=== PATIENT | male | born 1940 | race Caucasian/White ===

== ENCOUNTER 2018-08-12 09:08 | Emergency (ER) | payer MEDICARE, SELFPAY ==
[2018-08-12] VITALS (27 sets, daily range): BP systolic 110–141; BP diastolic 43–73; PULSE 53–74; RESP 11–31; TEMP 36.8–36.9; O2SAT 90–100
[2018-08-12] MEDS: Ondansetron 4 MG/2 ML VIAL IVP (09:36)
[2018-08-12] MEDS: Normal Saline 1,000 ML 1000 ML IV (09:36)
[2018-08-12 09:37] LABS: Absolute Basophil Count 0.02 k/cumm (0.0-0.2); Absolute Eosinophil Count 0.08 k/cumm (0.0-0.7); Absolute Lymphocyte Count 2.06 k/cumm (1.2-3.4); Absolute Monocyte Count 0.63 k/cumm (0.11-0.7); Absolute Neutrophil Count 3.69 k/cumm (1.2-6.7); Basophils % 0.3; Eosinophils % 1.2; HCT 46.3 % (40.0-50.0); HGB 15.2 g/dL (13.5-17.5); Lymphocytes % 31.8; Mean Corp. HGB Concentration 32.8 g/dL (32.0-36.0); Mean Corpuscular Hemoglobin 30.6 pg (27.0-33.0); Mean Corpuscular Volume 93.3 fL (80-95); Mean Platelet Volume 9.1 fL (8.0-11.0); Monocytes % 9.7; Platelet Count 327 x1000/uL (130-400); RBC 4.96 m/cumm (4.50-6.00); RBC Distribution Width 13.1 % (11.8-14.1); White Blood Cell Count 6.48 k/cumm (4.4-10.8)
[2018-08-12] MEDS: Sucralfate 1 GM TAB PO (09:38)
[2018-08-12] MEDS: Pantoprazole 40 MG VIAL IVP (09:38)
[2018-08-12 09:48] LABS: Lipase 81 U/L (73-393)
[2018-08-12 09:57] LABS: ALT 36 U/L (12-78); AST 48 U/L (15-37); Albumin 3.5 g/dL (3.4-5.0); Alkaline Phosphatase 103 U/L (46-116); Anion Gap 11.8 mmol/L (3-11); BUN 20 mg/dL (7-18); Bilirubin, Total 1.2 mg/dL (0.2-1.0); CO2 25.2 mmol/L (21.0-32.0); CREATININE 0.93 mg/dL (0.70-1.30); Calcium 9.5 mg/dL (8.5-10.1); Chloride 106 mmol/L (98-107); Glucose 88 mg/dL (70-100); Potassium 4.1 mmol/L (3.5-5.1); Sodium 143 mmol/L (136-145)
--- NOTE | 2018-08-12 10:23 | ED.GENADUL_ITS ---
Discharge Plan Disposition Patient Disposition: HOME Condition: Good Discharge Details Chief Complaint: Abd Prob Clinical Impression: Gastric ulcer, Vomiting Primary Care Provider: Harjinder Bañuelos ED Provider: Edwin Hoover Home Meds and New Rx's Prescriptions: New sucralfate [Carafate] 100 mg/mL suspension 2 gm W[place] BID Qty: 420 RF: 0 pantoprazole [Protonix] 40 mg tablet,delayed release (DR/EC) 40 mg PO DAILY Qty: 30 RF: 0 ranitidine HCl 150 mg tablet 150 mg PO DAILY Qty: 30 RF: 0 ondansetron 4 mg tablet,disintegrating 4 mg PO TID PRN (Reason: nausea and vomiting) 5 Days RF: 0 No Action aspirin [Aspirin Low Dose] 81 MG tablet,delayed release (DR/EC) 81 mg PO DAILY RF: 0 simvastatin 40 MG tablet 40 mg PO DAILY RF: 0 apixaban [Eliquis] 5 MG tablet 5 mg PO BID RF: 0 Metoprolol Succinate 25 MG TAB.ER.24H 25 mg PO DAILY RF: 0 lisinopril 5 MG tablet 5 mg PO DAILY Qty: 30 RF: 1 Discharge Instructions Instructions: Gastritis (ED), Diet for Stomach Ulcers and Gastritis (ED) Additional Instructions: Please take the medication as directed. Please avoid any spicy foods. Please follow-up with your primary care provider immediately. If you notice any worsening of your symptoms, or any new symptoms such as vomiting, diarrhea, fever, chills, shortness of breath, chest pain, numbness, weakness, or fainting , please return immediately to the emergency department for reevaluation. Please follow up with your primary care provider as soon as possible for reassessment and reevaluation. As always, it was a pleasure participating in your medical care today. Referrals: Harjinder Bañuelos MD [Primary Care Provider] - Discharge Data Discharge Date/Time-TO BE ENTERED AT DEPARTURE: 08/12/18 11:57 Medical Decision Making This is a pleasant 78-year-old male who is on Eliquis for unknown reasons both to the patient and on my review of the medical records. 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 The patient states that for the last 2-3 days he has had these episodes of nausea and vomiting, but it is been slightly more persistent than normal. He did notice some black in his vomit but denies seeing any coffee grounds or any other abnormalities. He denies any abdominal pain whatsoever. He continues to have regular bowel movements with no signs of diarrhea, melena, acholic stool or other abnormalities. He denies any symptoms of bloating, distention, or pain. Physical exam demonstrates a well-appearing male who does appear minimally dehydrated. Physical exam shows no abdominal tenderness whatsoever. Bowel sounds are present with no signs of hypertympany. No guarding or rebound. No distention. I discussed with the patient imaging versus initial rehydration he is requesting just hydration and labs at this time. We did hydrate the patient with normal saline, laboratory workup demonstrates no electrolyte abnormalities, mild signs of dehydration with a 2-1 BUN creatinine ratio. No signs of elevated white count, leukocytosis, or electrolyte derangement. The patient was given Zofran, and had complete resolution of his nausea. He had no more vomiting and was able to tolerate p.o. well. He was able to keep down his liquids without any difficulty. Although the patient had complete resolution of his symptoms and a benign workup , I discussed with the patient potential imaging secondary to his previous surgical history, but the patient very clearly stated that he felt fine, and would like to go home as he has been able to keep down liquids, and thinks that was all he needed. Patient will be given some Zofran for home use, however I had a long discussion regarding red flags for which to return, especially the need for a low threshold for return if he does have any return of his vomiting. On final assessment prior to discharge the patient looks very clinically well. Repeat abdominal exam continues to demonstrate no tenderness. Vital signs are stable. He is able to tolerate p.o. in front of me without any difficulty, and has had no repeat vomiting episodes. Diagnosis nausea and vomiting/dehydration. I have extensively reviewed the treatment plan and discharge instructions with the patient. I have addressed all patient concerns at this time. The patient was made aware of what symptoms to monitor for that would warrant a return to the emergency department. Discussed the plan with the patient, they demonstrate verbal understanding and agreement with our assessment and plan at this time. HPI General Date/Time Provider Initiated Documentation: 08/12/18 09:18 . HPI Narrative: This is a pleasant 78-year-old male with a past medical history of obesity, gastric bypass 25 years ago, Eliquis use of uncertain reason for use, however history does not reveal A. fib, and the patient denies A. fib or blood clots. Patient presents today for evaluation of vomiting. He states that every year he has a few episodes of vomiting that will occur during the day, and usually they get better on the own, however this time it is gone on for 2-1/2-3 days without any significant improvement. He states that the vomiting initially starts off yellow, but has now turned darker with some blackness in it. He denies any coffee grounds. He denies any epigastric or abdominal pain whatsoever. He denies any chest pain or shortness of breath. He denies any diarrhea. He has not taken anything to improve his symptoms. He states that he has tried to keep some fluids down but has not been able to keep much. He denies any other complaints at this time. Related Data Home Medications Medication Instructions Recorded Confirmed lisinopril 5 mg PO DAILY #30 tablet 06/24/17 02/28/18 Metoprolol Succinate 25 mg PO DAILY tab-cap NS 01/21/18 02/28/18 apixaban [Eliquis] 5 mg PO BID NS 01/21/18 03/04/18 aspirin [Aspirin Low Dose] 81 mg PO DAILY tab-cap NS 01/21/18 03/04/18 simvastatin 40 mg PO DAILY tab-cap NS 01/21/18 02/28/18 ondansetron 4 mg PO TID PRN 5 Days tab 08/12/18 pantoprazole [Protonix] 40 mg PO DAILY #30 tab 08/12/18 ranitidine HCl 150 mg PO DAILY #30 tab 08/12/18 sucralfate [Carafate] 2 gm WV BID #420 ml 08/12/18 Previous Rx's Medication Instructions Recorded lisinopril 5 mg PO DAILY #30 tablet 06/24/17 ondansetron 4 mg PO TID PRN 5 Days tab 08/12/18 pantoprazole [Protonix] 40 mg PO DAILY #30 tab 08/12/18 ranitidine HCl 150 mg PO DAILY #30 tab 08/12/18 sucralfate [Carafate] 2 gm WV BID #420 ml 08/12/18 Allergies Allergy/AdvReac Type Severity Reaction Status Date / Time Penicillins Allergy Intermediate swelling Unverified 06/24/17 10:51 General Stated Complaint: Abd Prob JESSICA: 3 Review of Systems Review of Systems All systems reviewed & are unremarkable except as noted in HPI and below PFSH Social History Smoking/Tobacco Use Status: Never Surgical History Colonoscopy - MAC (03/04/18) Extraction of cataract stomach stapling Exam Narrative Exam Narrative: 1.Const: Well-nourished, Well-developed, appearing stated age 2.Eyes: PERRL, no conjunctival injection, and symmetrical lids. 3.ENT: Atraumatic external nose and ears. dry MM. Neck: Symmetric, trachea midline, No thyromegaly. 4.CVS: +S1/S2, No murmurs or gallops. Peripheral pulses 2+ and equal in all extremities. Brisk capillary refill in all extremities. 5.RESP: Unlabored respiratory effort. Clear to auscultation bilaterally. No wheezes rales or rhonchi 6.GI: Soft, Nontender/Nondistended, No hepatosplenomegaly. No guarding or rebound. No epigastric tenderness. No tenderness on exam whatsoever. Abdomen shows no signs of bloating or distention. Bowel sounds are normal and present. No evidence of hyper tympanostomies bowel sounds 7.MSK: Normocephalic/Atraumatic, Extremities w/o deformity or ttp No cyanosis or clubbing, Normal movement of all extremities 8.Skin: Warm, Dry. No rashes or lesions. 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 Sensation grossly intact, no focal neurologic deficits. 10.Psych: (AAO) x3. Appropriate mood and affect Course Vital Signs Temperature 36.9 C 08/12/18 09:11 Pulse 70 08/12/18 09:11 Respiratory Rate 18 08/12/18 09:11 Blood Pressure 121/55 L 08/12/18 09:11 Pulse Oximetry 99 08/12/18 09:11 Temperature 36.9 C 08/12/18 09:11 Temperature Source Temporal Artery Scan 08/12/18 09:11 Pulse 70 08/12/18 09:11 Respiratory Rate 18 08/12/18 09:11 Respiratory Effort 08/12/18 09:34 Blood Pressure 121/55 L 08/12/18 09:11 Pulse Oximetry 99 08/12/18 09:11 Oxygen Delivery Method Room Air 08/12/18 09:11 Oxygen Flow Rate 0 08/12/18 09:11 Pain Level 0 08/12/18 09:11 Lab/Test Results Lab/Test Results: Laboratory Tests Range/Units 08/12/18 08/12/18 08/12/18 09:25 09:25 09:25 WBC (4.4-10.8) k/cumm 6.48 RBC (4.50-6.00) m/cumm 4.96 Hgb (13.5-17.5) g/dL 15.2 Hct (40.0-50.0) % 46.3 MCV (80-95) fL 93.3 MCH (27.0-33.0) pg 30.6 MCHC (32.0-36.0) g/dL 32.8 RDW (11.8-14.1) % 13.1 Plt Count (130-400) x1000/uL 327 MPV (8.0-11.0) fL 9.1 Immature Gran % 0.0 Neutrophils % 57.0 Lymphocytes % 31.8 Monocytes % 9.7 Eosinophils % 1.2 Basophils % 0.3 Absolute Neutrophils (1.2-6.7) k/cumm 3.69 Absolute Lymphocytes (1.2-3.4) k/cumm 2.06 Absolute Monocytes (0.11-0.7) k/cumm 0.63 Absolute Eosinophils (0.0-0.7) k/cumm 0.08 Absolute Basophils (0.0-0.2) k/cumm 0.02 Sodium (136-145) mmol/L 143 Potassium (3.5-5.1) mmol/L 4.1 Chloride (98-107) mmol/L 106 Carbon Dioxide (21.0-32.0) mmol/L 25.2 Anion Gap (3-11) mmol/L 11.8 H BUN (7-18) mg/dL 20 H Creatinine (0.70-1.30) mg/dL 0.93 Estimated GFR/1.73 m2 (mL/min/1.73m2) >= 60.00 Glucose (70-100) mg/dL 88 Calcium (8.5-10.1) mg/dL 9.5 Total Bilirubin (0.2-1.0) mg/dL 1.2 H AST (15-37) U/L 48 H ALT (12-78) U/L 36 Alkaline Phosphatase (46-116) U/L 103 Total Protein (6.4-8.2) g/dL 7.0 Albumin (3.4-5.0) g/dL 3.5 Lipase (73-393) U/L 81
== END 2018-08-12 11:57 | disposition home or self-care (01) ==
PROVIDERS: Emergency Provider Student in an Organized Health Care Education/Training Program; PCP Internal Medicine
DX: R11.2 Nausea with vomiting, unspecified (principal); K25.9 Gastric ulcer, unspecified as acute or chronic, without hemorrhage or perforation; I10 Essential (primary) hypertension; Z98.84 Bariatric surgery status
CPT/HCPCS: 36415; 80053; 83690; 96361; 96374; 96375; 99284; 85025; J2405

== ENCOUNTER 2019-05-17 14:45 | Emergency (ER) | payer MEDICARE, SELFPAY ==
[2019-05-17 14:47] VITALS: BP 153/66; PULSE 68; RESP 18; TEMP 36.6; O2SAT 98
--- NOTE | 2019-05-17 14:51 | DI.RAD_ITS ---
SYMPTOMS/DIAGNOSIS: RIGHT POSTEROLATERAL WRIST PAIN S/P FALL 1 WEEK AGO RIGHT WRIST: Three views were obtained. There are degenerative changes of the carpus, most prominent involving greater multangular 1st metacarpal joint. There is no evidence of acute fracture.
--- NOTE | 2019-05-17 14:55 | ED.GENADUL_ITS ---
Discharge Plan Disposition Patient Disposition: HOME Condition: Improving Discharge Details Chief Complaint: Orthopedic Clinical Impression: Sprain of right wrist Primary Care Provider: Harjinder Bañuelos ED Provider: Abe Shelby Home Meds and New Rx's Prescriptions: Continued aspirin [Aspirin Low Dose] 81 MG tablet,delayed release (DR/EC) 81 mg PO DAILY RF: 0 simvastatin 40 MG tablet 40 mg PO DAILY RF: 0 Eliquis 5 MG tablet 5 mg PO BID RF: 0 Metoprolol Succinate 25 MG TAB.ER.24H 25 mg PO DAILY RF: 0 lisinopril 5 MG tablet 5 mg PO DAILY Qty: 30 RF: 1 sucralfate [Carafate] 100 mg/mL suspension 2 gm SD BID Qty: 420 RF: 0 pantoprazole [Protonix] 40 mg tablet,delayed release (DR/EC) 40 mg PO DAILY Qty: 30 RF: 0 ranitidine HCl 150 mg tablet 150 mg PO DAILY Qty: 30 RF: 0 Discharge Instructions Instructions: Wrist Sprain (ED) Additional Instructions: Wear wrist splint as needed 5 to 10 days time. May remove to apply ice to reduce discomfort. Return if you develop swelling, fever, redness to the joint or any other acute concerns. Continue your regularly prescribed medication Medical Decision Making 71-year-old male states he fell on outstretched right hand 1 week ago and has had persistent pain since that time. He was not injured in any other way. He has not had motor or sensory changes. He is tender overlying the distal radius on exam. Referred for x-ray which does not reveal underlying fracture. Will place in splint for comfort. Patient understands home care as well as return/followup precautions. HPI General Mode of arrival: ambulatory . Date/Time Provider Initiated Documentation: 05/17/19 14:46 . Limitations to Documentation: no limitations . Information obtained by: patient . History of Present Illness 79 year old M presents to the emergency department with the chief complaint of Fall and right wrist pain, described as moderate, Quality is described as dull and constant, and is localized to the right and upper extremity. Patient reports no radiation. Patient started experiencing this hour(s) and it has been constant. Rest improves symptom(s), Movement worsens symptoms . Patient notes no other symptoms.. Patient did receive the following treatments prior to arrival, none Related Data Home Medications Medication Instructions Recorded Confirmed lisinopril 5 mg PO DAILY #30 tablet 08/17/17 07/10/19 Eliquis 5 mg PO BID NS 01/21/18 05/17/19 Metoprolol Succinate 25 mg PO DAILY tab-cap NS 01/21/18 05/17/19 aspirin [Aspirin Low Dose] 81 mg PO DAILY tab-cap NS 01/21/18 05/17/19 simvastatin 40 mg PO DAILY tab-cap NS 01/21/18 05/17/19 pantoprazole [Protonix] 40 mg PO DAILY #30 tab 08/12/18 05/17/19 ranitidine HCl 150 mg PO DAILY #30 tab 08/12/18 05/17/19 sucralfate [Carafate] 2 gm SD BID #420 ml 08/12/18 05/17/19 Previous Rx's Medication Instructions Recorded lisinopril 5 mg PO DAILY #30 tablet 06/24/17 pantoprazole [Protonix] 40 mg PO DAILY #30 tab 08/12/18 ranitidine HCl 150 mg PO DAILY #30 tab 08/12/18 sucralfate [Carafate] 2 gm SD BID #420 ml 08/12/18 Allergies Allergy/AdvReac Type Severity Reaction Status Date / Time Penicillins Allergy Intermediate swelling Unverified 05/17/19 14:52 General Stated Complaint: Orthopedic JESSICA: 4 Review of Systems Review of Systems No other injury. No numbness or tingling. No weakness. 6 systems reviewed and otherwise negative [facility] Surgical History Colonoscopy - MAC (03/04/18) Extraction of cataract stomach stapling Social History Smoking/Tobacco Use Status: Never Drug use: Never Substance use type: does not use Do you feel safe at home: Yes Do you feel safe in your relationship?: Yes Exam Narrative Exam Narrative: GEN: awake, alert, oriented 3. Pleasant, well groomed, interactive. HEAD: Normocephalic, atraumatic ENT: Mucous membranes moist, oropharynx unremarkable, External ear exam unremarkable EYES: PERRL, EOMI EXT: Full ROM, right distal radius pain. Mild pain with resisted supination. 2+ radial pulse in bilateral upper extremity. Sensation intact throughout Neuro: Grossly normal neurologic exam, conversant, interactive. Psych: Speech fluent, thoughts congruent, affect normal Course Vital Signs Temperature 36.6 C 05/17/19 14:47 Pulse 68 05/17/19 14:47 Respiratory Rate 18 05/17/19 14:47 Blood Pressure 153/66 H 05/17/19 14:47 Pulse Oximetry 98 05/17/19 14:47 Temperature 36.6 C 05/17/19 14:47 Temperature Source Temporal Artery Scan 05/17/19 14:47 Pulse 68 05/17/19 14:47 Respiratory Rate 18 05/17/19 14:47 Respiratory Effort Non-Labored 05/17/19 14:50 Blood Pressure 153/66 H 05/17/19 14:47 Blood Pressure Position Sitting 05/17/19 14:47 Pulse Oximetry 98 05/17/19 14:47 Oxygen Delivery Method Room Air 05/17/19 14:47 Oxygen Flow Rate 0 05/17/19 14:47 Pain Level 4 05/17/19 14:51
[2019-05-17 15:35] VITALS: BP 153/66; PULSE 68; RESP 18; TEMP 36.6; O2SAT 98
== END 2019-05-17 15:25 | disposition home or self-care (01) ==
PROVIDERS: Emergency Provider Emergency Medicine; PCP Internal Medicine
DX: S63.501A Unspecified sprain of right wrist, initial encounter (principal); W01.0XXA Fall on same level from slipping, tripping and stumbling without subsequent striking against object, initial encounter; I10 Essential (primary) hypertension; Z79.01 Long term (current) use of anticoagulants
CPT/HCPCS: 29125; 99283; 73110; 99282; L3908

== ENCOUNTER 2020-04-30 15:54 | Outpatient (REF) | payer MEDICARE, SELFPAY ==
[2020-04-30 20:24] LABS: Abs Immature Grans 0.01 k/cumm (0.0-0.09); Absolute Basophil Count 0.01 k/cumm (0.0-0.2); Absolute Eosinophil Count 0.31 k/cumm (0.0-0.7); Absolute Lymphocyte Count 1.96 k/cumm (1.2-3.4); Absolute Monocyte Count 0.74 k/cumm (0.11-0.7); Absolute Neutrophil Count 2.59 k/cumm (1.2-6.7); Basophils % 0.2; Eosinophils % 5.5; HCT 44.6 % (40.0-50.0); HGB 14.3 g/dL (13.5-17.5); Immature Grans % 0.2 %; Lymphocytes % 34.9; Mean Corp. HGB Concentration 32.1 g/dL (32.0-36.0); Mean Corpuscular Hemoglobin 29.5 pg (27.0-33.0); Mean Corpuscular Volume 92.1 fL (80-95); Mean Platelet Volume 10.1 fL (8.0-11.0); Monocytes % 13.2; Platelet Count 375 x1000/uL (130-400); RBC 4.84 m/cumm (4.50-6.00); RBC Distribution Width 14.1 % (11.8-14.1); White Blood Cell Count 5.62 k/cumm (4.4-10.8)
[2020-04-30 20:47] LABS: ALT 20 U/L (16-63); AST 26 U/L (15-37); Albumin 3.4 g/dL (3.4-5.0); Alkaline Phosphatase 128 U/L (46-116); Anion Gap 8.7 mmol/L (3-11); BUN 16 mg/dL (7-18); Bilirubin, Total 0.5 mg/dL (0.2-1.0); CO2 27.3 mmol/L (21.0-32.0); CREATININE 1.05 mg/dL (0.70-1.30); Calcium 9.4 mg/dL (8.5-10.1); Chloride 107 mmol/L (98-107); Glucose 93 mg/dL (74-106); Sodium 143 mmol/L (136-145); Total Protein 6.3 g/dL (6.4-8.2)
[2020-04-30 21:01] LABS: Lipase 71 U/L (73-393)
== END 2020-04-30 16:14 ==
LOC: NCHCN 15:54
PROVIDERS: PCP Internal Medicine; Visit Provider Internal Medicine
DX: R10.31 Right lower quadrant pain (principal); R63.4 Abnormal weight loss
CPT/HCPCS: 80053; 83690; 85025

== ENCOUNTER 2021-07-31 16:58 | Outpatient (REF) | payer MEDICARE, MEDICAID, SELFPAY ==
[2021-07-31 21:24] LABS: Abs Immature Grans 0.01 10^3/uL (0.0-0.06); Absolute Basophil Count 0.03 10^3/uL (0.0-0.2); Absolute Eosinophil Count 0.13 10^3/uL (0.0-0.7); Absolute Lymphocyte Count 2.07 10^3/uL (1.2-3.4); Absolute Monocyte Count 0.88 10^3/uL (0.1-0.8); Absolute Neutrophil Count 4.57 10^3/uL (1.2-6.7); Basophils % 0.4; Eosinophils % 1.7; HCT 43.8 % (40.0-50.0); HGB 14.1 g/dL (13.5-17.5); Immature Grans % 0.1; Lymphocytes % 26.9; MCH 30.5 pg (27.0-33.0); MCHC 32.2 % (32.0-36.0); MCV 94.8 fL (80-95); MPV 9.7 fL (8.0-11.0); Monocytes % 11.4; Neutrophils % 59.5; Nucleated RBC 0 %; Platelet Count 389 10^3/uL (130-400); RBC 4.62 10^6/uL (4.36-5.78); RDW-SD 45.6 fL; WBC 7.69 10^3/uL (4.4-10.8)
[2021-07-31 21:38] LABS: Iron 45 ug/dL (65-175); Total Iron Binding Capacity 314 ug/dL (250-450); Transferrin Sat 14 % (20-55)
[2021-07-31 22:02] LABS: Anion Gap 7.4 mmol/L (3-11); BUN 19 mg/dL (7-18); CO2 28.6 mmol/L (21.0-32.0); CREATININE 1.1 mg/dL (0.70-1.30); Calcium 9.7 mg/dL (8.5-10.1); Chloride 104 mmol/L (98-107); Ferritin 115 ng/mL (26-388); Glucose 101 mg/dL (74-106); Magnesium 2.1 mg/dL (1.8-2.4); Potassium 4.9 mmol/L (3.5-5.1); Sodium 140 mmol/L (136-145); TSH (W/Ref FT4) 1.22 uIU/mL (0.36-3.74)
== END 2021-07-31 16:59 | disposition home or self-care (01) ==
LOC: NCHCN 16:58
PROVIDERS: Visit Provider Nurse Practitioner Family
DX: K30 Functional dyspepsia (principal); G47.62 Sleep related leg cramps; R42 Dizziness and giddiness
CPT/HCPCS: 80048; 82728; 83540; 83550; 83735; 84443; 85025

== ENCOUNTER 2022-01-20 15:26 | Outpatient (REF) | payer MEDICARE, MEDICAID, SELFPAY ==
[2022-01-20 21:10] LABS: HCT 43.6 % (40.0-50.0); HGB 14.4 g/dL (13.5-17.5); MCH 30.6 pg (27.0-33.0); MCV 92.6 fL (80-95); MPV 10.3 fL (8.0-11.0); Platelet Count 348 10^3/uL (130-400); RBC 4.71 10^6/uL (4.36-5.78); RDW 12.6 % (11.8-14.1); RDW-SD 43.1 fL; WBC 6.24 10^3/uL (4.4-10.8)
[2022-01-20 21:52] LABS: Anion Gap 8.2 mmol/L (3-11); BUN 15 mg/dL (7-18); CO2 25.8 mmol/L (21.0-32.0); Calcium 9.2 mg/dL (8.5-10.1); Chloride 108 mmol/L (98-107); Glucose 98 mg/dL (74-106); Potassium 4.9 mmol/L (3.5-5.1); Sodium 142 mmol/L (136-145)
== END 2022-01-20 15:27 | disposition home or self-care (01) ==
LOC: NCHCN 15:26
PROVIDERS: PCP Internal Medicine; Visit Provider Internal Medicine
DX: R42 Dizziness and giddiness (principal)
CPT/HCPCS: 80048; 85027; 83735

== ENCOUNTER 2022-01-20 16:18 | Outpatient (REF) | payer MEDICARE, MEDICAID, SELFPAY | END 2022-01-20 16:19 | disposition home or self-care (01) | LOC: NCHCN 16:18 | PROVIDERS: Visit Provider Internal Medicine ==

== ENCOUNTER 2022-01-21 03:00 | Outpatient (CLI) | payer MEDICARE, MEDICAID, SELFPAY ==
--- NOTE | 2022-02-10 13:31 | W.CARDEVENT ---
Date of service: 02/10/22 Time of Service: 13:35 Cardiac Event Recorder Referring Provider:: Chun Bañuelos Indications:: Dizziness Cardiac Event Note: This is a 14-day monitoring coordinator, reportedly ordered for dizziness Predominant rhythm was sinus. Average heart rate was 63, minimum 43, maximum 111 There were moderately frequent ventricular ectopic beats comprising 5.65% of total. 14 episodes of nonsustained ventricular tachycardia were recorded, the longest of these was 7 beats in duration There were rare atrial premature beats. There are multiple self-limited atrial runs the longest of which was 19 beats in duration. Some of these labeled SVT were in fact sinus tachycardia There was no atrial fibrillation, no high-grade AV block, no pauses greater than 3 seconds Patient symptoms were reported, which corresponded to sinus rhythm
== END 2022-01-21 03:01 | disposition home or self-care (01) ==
PROVIDERS: PCP Internal Medicine; Visit Provider Internal Medicine
DX: R42 Dizziness and giddiness (principal)
CPT/HCPCS: 93246

== ENCOUNTER 2022-02-10 13:35 | Outpatient (CLI) | payer MEDICARE, MEDICAID, SELFPAY | END 2022-02-10 13:36 | LOC: CARDO 02-16 12:47 | PROVIDERS: PCP Internal Medicine; Visit Provider Internal Medicine Cardiovascular Disease | DX: R42 Dizziness and giddiness (principal) | CPT/HCPCS: 93248 ==

== ENCOUNTER 2022-02-24 00:34 | Outpatient (CLI) | payer MEDICARE, MEDICAID, SELFPAY ==
--- NOTE | 2022-02-24 | DI.NM_ITS ---
APPROVED REPORT Exam: Exercise Treadmill Patient Location: Out-Patient Room/Bed: Stress Nurse: Marianna Christian RN Ordering Provider:CELINA ESTRADA, Contact Number: BMI: 36.32 Baseline Rhythm: Sinus Rhythm/1DHB, IVCD, PACs, PVCs Indications: AFIB, Tachycardia Medical History Medical History: HTN, AFIB, Tachycardia, NSVT, Obesity Cardiac Medications: Metoprolol succinate, Pantoprazole, Simvastatin, Lisinopril, Eliquis, Allergies: Penicillins Cardiac Risk Factors: FHX of CAD, HTN, Obesity Previous Cardiac Procedures: None Pretest Chest Pain Characteristics: No chest pain Exercise History: Sedentary Physical Disabilities: None Lung Sounds: Clear to auscultation Heart Sounds: Regular Stress Test Details Test: Exercise stress testing was performed using a Armen protocol. Nuclear Acquisition: Rest Tc-99m/Stress Tc-99m 1 day Rest Isotope: Tc-99m Sestamibi. Dose: 12.0 Date: 02/24/2022 Injection Time: 0855 Stress Isotope: Tc-99m Sestamibi. Dose: 37.0 Date: 02/24/2022 Injection Time: 1020 HR Resting HR Supine: 71 bpm Max Heart Rate (APMHR): 139.173237 bpm Resting HR Standin bpm Target HR (85% APMHR): 118.240392 bpm Max HR Achieved: 143 bpm % of APMHR: 102.88 Recovery HR: 82 bpm HR response to stress: Accelerated HR response to stress Comment: Metoprolol succinate held for > 48 hours prior to test. BP Resting BP Supine: 170/82 mmHg Resting BP Standin/72 mmHg Max BP: 222/82 mmHg Recovery BP: 162/80 mmHg BP response to stress: Abnormal hypertensive response to stress. Comment: Patient reports he forgot to take his BP meds this morning. ECG Resting ECG: Sinus Rhythm, 1st degree AV block, IVCD Ectopy: PACs, PVCs Stress ECG: Sinus Tachycardia ST Change: No significant ST segment changes noted Arrhythmia: PACs, PVCs, PVC couplets, PVC triplet Comment: significant artifact while walking. Recovery ECG: Sinus Rhythm Recovery ST Change: No significant ST segment changes noted Recovery Arrhythmia: PACs, PVCs, PVC couplets,3-4 beat PAC runs, pauses Clinical Reason for Termination: Fatigue Stress Symptoms: Dyspnea, General Fatigue Exercise duration: 2 min29 sec Highest Stage Reached: Stage 1: 1.7 mph at 10% grade. Exercise capacity: 3.1 METs Marsh Treadmill Score: 1 Rate Pressure Product: [id number] Stress ECG Conclusion 1. The resting electrocardiogram showed first-degree AV block 2. Patient exercised on the Armen protocol for 2 minutes and 29 seconds, a workload of 3.1 METS, stop ping due to fatigue 3. Hypertensive blood pressure response to exercise. Accelerated heart rate response to exercise, th e patient achieved greater than 100% of predicted heart rate for age 4. The electrocardiographic portion of the test was negative for myocardial ischemia 5. Atrial and ventricular ectopic beats were noted Marsh Treadmill Score is 1 which is Moderate risk. Stress Test Summary STAGE Time (mins) Speed (mph) Grade (%) HR BP SYMPTOMS METS Supine 71 170/82 Standing 57 162/72 1 min recovery 101 222/82 3 min recovery 92 208/70 6 min recovery 82 162/80 Armen protocol modified within 1 minute of exercise to encourage continuation of exercise on treadmil l. Treadmill slowed to 1.2 mph, elevation maintained at 10%. MPI Conclusion Possible minimal apical ischemia. There is no evidence of prior infarction EF is 46%. Wall motion appears normal Radiologist Interpretation Radiologist agrees with [employer]igator [employer]ilizer's Interpretation. Radiologist Interpretation by: Abe Daniels MD Interpretation Date/Time: 02/25/2022 09:39:14
== END 2022-02-24 00:54 ==
PROVIDERS: PCP Internal Medicine; Visit Provider Internal Medicine
DX: I48.0 Paroxysmal atrial fibrillation (principal); R00.0 Tachycardia, unspecified
CPT/HCPCS: 78452; 93016; 93018; 93017

== ENCOUNTER 2022-06-16 15:40 | Outpatient (REF) | payer MEDICARE, MEDICAID, SELFPAY ==
[2022-06-16 15:01] LABS: Anion Gap 6.5 mmol/L (3-11); BUN 13 mg/dL (7-18); CO2 27.5 mmol/L (21.0-32.0); CREATININE 0.9 mg/dL (0.70-1.30); Calcium 9.2 mg/dL (8.5-10.1); Chloride 106 mmol/L (98-107); Glucose 104 mg/dL (74-106); Magnesium 1.9 mg/dL (1.8-2.4); Potassium 4.5 mmol/L (3.5-5.1); Sodium 140 mmol/L (136-145)
== END 2022-06-16 15:41 | disposition home or self-care (01) ==
LOC: NCHCN 15:40
PROVIDERS: PCP Internal Medicine; Visit Provider Internal Medicine
DX: I10 Essential (primary) hypertension (principal); I48.0 Paroxysmal atrial fibrillation; I47.2 Ventricular tachycardia; R20.2 Paresthesia of skin; R25.3 Fasciculation; H91.90 Unspecified hearing loss, unspecified ear
CPT/HCPCS: 80048; 83735

== ENCOUNTER 2022-09-15 08:02 | Outpatient (CLI) | payer MEDICARE, MEDICAID, SELFPAY ==
--- NOTE | 2022-09-15 08:00 | RT.EKG_ITS ---
APPROVED REPORT Exam: Resting ECG Reason for Exam: ventricular arrythmia Patient Location: O HR:59 bpm ECG Measurements Heart Rate 59 AXIS NH [id number] P [id number] QRSd 107 QRS -42 QT 393 T 41 QTc 390 Conclusion NSR Borderline first-degree AV block Ventricular premature complex...V complex w/ short R-R interval Left axis deviation...QRS axis (-30,-90) Borderline low voltage, extremity leads...all extremity leads <0.6mV
== END 2022-09-15 08:03 | disposition home or self-care (01) ==
LOC: DI.CARD 08:03
PROVIDERS: PCP Internal Medicine; Visit Provider Internal Medicine Cardiovascular Disease
DX: I49.9 Cardiac arrhythmia, unspecified (principal); R94.31 Abnormal electrocardiogram [ECG] [EKG]; I49.3 Ventricular premature depolarization
CPT/HCPCS: 93010

== ENCOUNTER → 2022-09-15 10:57 | Outpatient (BNVA) | payer MEDICARE, MEDICAID, SELFPAY | PROVIDERS: PCP Internal Medicine; Referring Provider Internal Medicine; Visit Provider Internal Medicine Cardiovascular Disease | DX: I48.0 Paroxysmal atrial fibrillation (principal); I49.9 Cardiac arrhythmia, unspecified | CPT/HCPCS: 93005; 99203 ==

== ENCOUNTER 2022-11-19 02:30 | Outpatient (CLI) | payer MEDICARE, MEDICAID, SELFPAY ==
--- NOTE | 2022-11-19 13:00 | DI.US_ITS ---
APPROVED REPORT EXAM: Comprehensive 2D, Doppler, and color-flow Echocardiogram Patient Location: Out-Patient Fashion Patternmaker: Nisha Devi RDCS (AE) Indications: Check lv function, Paroxysmal atrial fibrillation Other Information Study Quality: Fair. Technically limited study due to body habitus. Conclusion Normal left ventricular wall thickness and chamber size. Estimated ejection fraction is 55%. Wall m otion is normal Normal right ventricular size and systolic function Both atria are normal in size Aortic valve is sclerotic. Number of leaflets could not be accurately determined. There is trace ao rtic regurgitation. There is no aortic stenosis Normal mitral valve with mild regurgitation Normal tricuspid valve with trace to mild regurgitation. Estimated right ventricular systolic pressu re is 25 mmHg Mildly dilated ascending aorta 3.65 cm Wall motion Left Ventricle The left ventricle is normal size. The overall left ventricular systolic function appears normal. The re is normal left ventricular wall thickness. There is normal LV segmental wall motion. There is no v entricular septal defect visualized. LVEF is 55%. Right Ventricle The right ventricle is normal size. The right ventricular systolic function is normal. The RVSP is 24 .9_ mmHg. Atria The left atrium size is normal. The right atrium size is normal. The interatrial septum is intact wit h no evidence for an atrial septal defect. Aortic Valve The Aortic valve is sclerotic. Number of aortic valve leaflets could not be assessed. There is no aor tic valvular stenosis. Trace aortic regurgitation. Mitral Valve The mitral valve is normal in structure. No evidence of mitral valve stenosis. Mild mitral regurgitat ion. Tricuspid Valve The tricuspid valve is normal in structure. There is no tricuspid valve stenosis. Trace to mild tricu spid regurgitation. Pulmonic Valve The pulmonary valve is normal in structure. There is no pulmonic valvular stenosis. There is no pulmo leandro valvular regurgitation. Great Vessels The aortic root is normal in size. The ascending aorta is mildly dilated. Aortic arch is not well vis ualized. IVC is normal in size and collapses >50% with inspiration. Pericardium There is no pericardial effusion. 2D Dimensions IVSD d PLAX 0.94 cm M: 0.6-1.2 LV Vol A2C d MOD 141.9 mL LVPW d PLAX 1.04 cm M: 0.6 - 1.2 LV Vol A4C d MOD 145.3 mL LVID d PLAX 5.14 cm M: 4.2 - 5.8 LA vol/ BSA A2C s A-L 39.9 mL/m2 LVDs 4.00 cm M: 2.5 - 4.0 LA vol/ BSA A4C s A-L 37.4 mL/m2 Ao Root d 3.24 cm M: 3.1 - 3.7 LA Vol/ BSA Biplane s A-L 39.6 mL/m2 RA Area A4C 16.87 cm2 LA Area A4C s MOD 25.91 cm2 RA Vol/ BSA A4C s A-L 19.9 mL/m2 LA Area A2C s MOD 26.09 cm2 Ao Asc Diam d 3.65 cm M: 2.6 - 3.4 LV EF A4C MOD 55.4 % LV EF Teichholz 44.1 % LV EF A2C MOD 55.7 % LVEF (Lee's) 56.00 % M: 52 - 72 LV EF Biplane MOD 56.0 % LV Volume 104.06 mL M: 62 - 150 SV 81.21 mL LV Volume Index 45.24 mL/m2 M: 34 - 74 SV Index 35.34 mL/m2 LV Vol Biplane MOD 145.0 mL FS 21.95 % M-Mode TAPSE 2.38 cm (M/F) >1.7 LV Diastology MV E' medial 0.054 (>0.07 m/s) E/A Ratio 0.7 LV E/e MED 10.60 (<14) MV E Vmax 0.57 (0.4-1.3 m/s) MV E' lateral 0.080 (>0.1 m/s) MV A Vmax 0.85 (0.4-1.3 m/s) LV E/e LAT 7.15 (<14) MV E/A Ratio 0.64 MV E/E' medial 10.64 MV E/E' lateral 7.16 Aortic Valve LVOT Area 3.73 cm2 AoV Area Vmax 3.05 cm2 LVOT Vmax 0.98 m/s AoV Area/ BSA (Vmax) 1.33 cm2/m2 LVOT Mean Walter. 0.62 m/s LOUIS Mean Walter. 2.67 cm2 LVOT Peak Grad 3.8 mmHg LOUIS Mean Walter. Index 1.16 cm2/m2 LVOT Mean Grad 1.9 mmHg AR DT 2295 msec LVOT VTI 0.246 m AR PHT 666 msec LVOT Diam s 2.15 cm AoV Vmax 1.20 m/s Velocity Ratio 0.82 AoV Mean Walter. 0.87 m/s AoV Peak Grad 5.8 mmHg LVOT SV 91.88 mL AoV Mean Grad 3.3 mmHg AoV VTI 0.286 m AoV Area VTI 3.21 cm2 AoV Area/ BSA (VTI) 1.40 cm/m2 Mitral Valve MV DT 220 (160-240 msec) MV PHT 64 msec MV Area PHT 3.45 cm2 Pulmonary Valve PV Vmax 0.82 (0.5-1.5 m/s) RVOT Peak Gr. 1.87 mmHg PV Peak Grad 2.7 mmHg RVOT Mean Gr. 0.90 mmHg PV Mean Grad 1.6 mmHg RVOT VTI 0.147 m PV VTI 0.160 m RVOT Vmax 0.68 m/s Tricuspid Valve TR Peak Grad 21.9 mmHg TR Vmax 2.34 m/s RA Pressure 3.00 mmHg RVSP (TR) 24.9 mmHg
== END 2022-11-19 02:50 ==
LOC: DI 02:30
PROVIDERS: PCP Internal Medicine; Visit Provider Internal Medicine Cardiovascular Disease
DX: I48.0 Paroxysmal atrial fibrillation (principal)
CPT/HCPCS: 93306

== ENCOUNTER 2023-03-30 18:59 | Outpatient (REF) | payer MEDICARE, MEDICAID, SELFPAY ==
[2023-03-30 15:17] LABS: Abs Immature Grans 0.01 10^3/uL (0.0-0.06); Absolute Basophil Count 0.03 10^3/uL (0.0-0.2); Absolute Eosinophil Count 0.17 10^3/uL (0.0-0.7); Absolute Lymphocyte Count 1.73 10^3/uL (1.2-3.4); Absolute Monocyte Count 0.56 10^3/uL (0.1-0.8); Absolute Neutrophil Count 2.55 10^3/uL (1.2-6.7); Basophils % 0.6; Eosinophils % 3.4; HCT 44.2 % (40.0-50.0); HGB 14.2 g/dL (13.5-17.5); Immature Grans % 0.2; Lymphocytes % 34.3; MCH 29.8 pg (27.0-33.0); MCHC 32.1 % (32.0-36.0); MCV 93 fL (80-95); MPV 9.5 fL (8.0-11.0); Monocytes % 11.1; Neutrophils % 50.4; Platelet Count 356 10^3/uL (130-400); RBC 4.77 10^6/uL (4.36-5.78); RDW 12.8 % (11.8-14.1); RDW-SD 43.4 fL; WBC 5.05 10^3/uL (4.4-10.8)
[2023-03-30 15:33] LABS: ESR 8 mm/hr (0-20)
[2023-03-30 15:44] LABS: ALT 18 U/L (16-63); AST 23 U/L (15-37); Albumin 3.5 g/dL (3.4-5.0); Alkaline Phosphatase 134 U/L (46-116); Anion Gap 7.1 mmol/L (3-11); BUN 15 mg/dL (7-18); Bilirubin, Total 0.7 mg/dL (0.2-1.0); CO2 26.9 mmol/L (21.0-32.0); Calcium 9.4 mg/dL (8.5-10.1); Chloride 106 mmol/L (98-107); Estimated GFR 75.14 (mL/min/1.73m2); Glucose 109 mg/dL (74-106); Potassium 4.6 mmol/L (3.5-5.1); Sodium 140 mmol/L (136-145); Total Protein 6.8 g/dL (6.4-8.2)
== END 2023-03-30 19:00 | disposition home or self-care (01) ==
LOC: NCHCN 18:59
PROVIDERS: PCP Internal Medicine; Visit Provider Family Medicine
DX: R19.7 Diarrhea, unspecified (principal)
CPT/HCPCS: 80053; 85652; 85025

== ENCOUNTER 2023-07-01 10:03 | Outpatient (REF) | payer MEDICARE, MEDICAID, SELFPAY ==
[2023-07-01 16:30] LABS: Iron 42 ug/dL (65-175); Total Iron Binding Capacity 286 ug/dL (250-450); Transferrin Sat 15 % (20-55)
[2023-07-01 16:50] LABS: Calculated LDL 82 mg/dL (<100); Cholesterol 147 mg/dL (<200); HDL Cholesterol 55 mg/dL (40-60); Triglyceride 50 mg/dL (<150)
== END 2023-07-01 10:04 | disposition home or self-care (01) ==
LOC: NCHCN 10:03
PROVIDERS: PCP Internal Medicine; Visit Provider Internal Medicine
DX: E78.5 Hyperlipidemia, unspecified (principal); E61.1 Iron deficiency
CPT/HCPCS: 80061; 83540; 83550

== ENCOUNTER 2024-05-01 15:43 | Outpatient (REF) | payer MEDICARE, MEDICAID, SELFPAY ==
[2024-05-01 15:28] LABS: Iron 76 ug/dL (65-175); Total Iron Binding Capacity 261 ug/dL (250-450); Transferrin Sat 29 % (20-55)
[2024-05-01 16:00] LABS: ALT 18 U/L (16-63); AST 21 U/L (15-37); Albumin 3.4 g/dL (3.4-5.0); Alkaline Phosphatase 116 U/L (46-116); Anion Gap 5.7 mmol/L (3-11); BUN 12 mg/dL (7-18); Bilirubin, Total 0.59 mg/dL (0.2-1.0); CO2 30.3 mmol/L (21.0-32.0); Chloride 109 mmol/L (98-107); Estimated GFR 74.68 (mL/min/1.73m2); Folate 5.3 ng/mL (8.6-20.0); Glucose 110 mg/dL (74-106); Potassium 4.4 mmol/L (3.5-5.1); Sodium 145 mmol/L (136-145); Total Protein 6.3 g/dL (6.4-8.2); Vitamin B12 222 pg/mL (193-986); Vitamin D 25 Total 17.7 ng/mL (30-100)
== END 2024-05-01 15:44 | disposition home or self-care (01) ==
LOC: NCHCN 15:43
PROVIDERS: PCP Internal Medicine; Visit Provider Family Medicine
DX: I10 Essential (primary) hypertension (principal); Z98.84 Bariatric surgery status
CPT/HCPCS: 80053; 82306; 82607; 82746; 83540; 83550

== ENCOUNTER 2024-07-12 10:00 | Outpatient (CLI) | payer MEDICARE, SELFPAY ==
--- NOTE | 2024-07-12 10:40 | DI.US_ITS ---
Exam(s) US LOWER EXTREMITY VENOUS LT EXAM: US LOWER EXTREMITY VENOUS LT CLINICAL HISTORY: Lt lower leg pain x 1 mo, M79.605, tenderness in popliteal region TECHNIQUE: Left lower extremity venous ultrasound performed using grayscale, color-flow, and spectra l Doppler analysis. COMPARISON: No exams were available for comparison FINDINGS: The left common femoral, femoral and popliteal veins demonstrate normal compressibility, augmentation , and color Doppler. The posterior tibial l veins are patent. The saphenofemoral junction is unremar kable. There is a 2.8 x 1.7 x 0.7 cm popliteal cyst. The soft tissues are unremarkable. IMPRESSION: 1. No evidence of a left lower extremity DVT. 2. 2.8 x 1.7 x 0.7 cm popliteal cyst. DATA REPOSITORY:
--- NOTE | 2024-07-12 11:17 | DI.RAD_ITS ---
Exam(s) XR KNEE LT 3V AP,LAT,WENDY EXAM: XR KNEE LT 3V AP,LAT,WENDY CLINICAL HISTORY: Lt knee pain, M25.569. TECHNIQUE: 2D digital imaging was performed of the left knee. Three images were obtained. AP, late ral and PA tunnel views were obtained. COMPARISON: No exams were available for comparison FINDINGS: BONES: No acute fracture is present. No bony destructive lesion is seen. JOINTS: There is moderate narrowing in the medial femoral tibial joint space. Osteophytes are seen i nvolving all 3 joint compartments. No joint effusion is seen. No loose body. SOFT TISSUE: Mild vascular calcification is seen. IMPRESSION: Tynp-[id number] DJD of the left knee. DATA REPOSITORY: RADIATION DOSE DELIVERED:
== END 2024-07-12 10:20 ==
LOC: DI 10:00
PROVIDERS: PCP Internal Medicine; Visit Provider Nurse Practitioner Family
DX: M17.12 Unilateral primary osteoarthritis, left knee (principal)
CPT/HCPCS: 73562; 93971

== ENCOUNTER 2024-09-07 12:01 | Outpatient (REF) | payer MEDICARE, SELFPAY ==
--- NOTE | 2024-09-07 12:30 | SKI_PTH ---
PATIENT: Melissa Crespo [id number] AGE/SX: 84/M ROOM: RE09/07/[address]: Amrit Mathis : 1940 BED: DIS: 09/07/2024 SPEC #: [id number] RECD: 09/08/24 12:38 STATUS: JACKIE REQ #: [id number] PIPER: 09/07/24 12:[address]: Amrit Mathis DEPT: Surgical Specimen RECD BY: Layla Jones Tissues: 1 - SKIN BIOPSY(SHAVE/PUNCH) Procedures: SKIN LEVEL 4 Comments: [id number]
== END 2024-09-07 12:02 | disposition home or self-care (01) ==
LOC: NCHCN 12:01
PROVIDERS: PCP Family Medicine; Visit Provider Family Medicine
DX: C44.42 Squamous cell carcinoma of skin of scalp and neck (principal)
CPT/HCPCS: 88305

== ENCOUNTER → 2024-09-28 10:39 | Outpatient (BNVA) | payer MEDICARE, SELFPAY | PROVIDERS: PCP Family Medicine; Referring Provider Family Medicine; Visit Provider Student in an Organized Health Care Education/Training Program | DX: M17.12 Unilateral primary osteoarthritis, left knee (principal) | CPT/HCPCS: 20610; 99213; J1010 ==

== ENCOUNTER → 2024-12-15 09:57 | Outpatient (BNVA) | payer MEDICARE, SELFPAY | PROVIDERS: PCP Family Medicine; Referring Provider Family Medicine; Visit Provider Surgery | DX: R13.19 Other dysphagia (principal) | CPT/HCPCS: 99214 ==

== ENCOUNTER 2024-12-18 09:59 | Day surgery (SDC) | payer MEDICARE, SELFPAY ==
--- NOTE | 2024-12-17 05:41 | W.PM.DSUDISC ---
Date of service: 12/18/24 Discharge Plan Disposition Patient Disposition: Home Condition: Good Discharge Details Reason For Visit: EGD Attending Provider: Woody Damon Primary Care Provider: Amrit Mathis Home Meds and New Rx's Prescriptions: Continued ferrous sulfate 325 mg (65 mg iron) tablet 325 mg PO DAILY omeprazole 20 mg capsule,delayed release(DR/EC) 20 mg PO DAILY losartan 25 mg tablet 25 mg PO DAILY acetaminophen [Tylenol Extra Strength] 500 mg tablet 500 mg PO ONCE Held Eliquis 5 MG tablet 5 mg PO BID Hold Instructions: Resume on 12/19/24. Discharge Instructions Instructions: Pureed Diet Additional Instructions: Melissa, it was very nice meeting you today, and I hope you make a quick recovery from this procedure. The source of your discomfort is arising from the connection that empties your gastric pouch into your small intestine (from your previous gastric bypass) the true esophagus from your mouth down to where this connects onto your stomach is all wide open, your symptoms are arising from the fact that the gastric pouch cannot empty into your small intestine. Although I can see the opening to some degree, I am not able to get across this, and in that regard, I do not feel comfortable trying to stretch it open. It is possible that an advanced endoscopist would be able to open this, but I want to make sure we preserve all those options for you, and minimize exposing you to any significant risk unless I am confident that there will be benefit. I did place a referral down to [facility], and I described the nature of the problem. I have asked them to consider this consultation urgently, so I would hope that they would contact you in the next few days to try to arrange an appointment. Certainly if you do not hear from them, please let my office know and we can try to assist with that. In the meantime, I suggest keeping your diet very thin. I would shy away from any solid foods for right now, or at the very least pur?e then so that they are almost in liquid form to to help promote drainage of the gastric pouch. It is probably worth adding some protein supplementation such as boost or Ensure shakes to help maintain appropriate protein input. I did do some biopsies today as well, so I did like you to hold your Eliquis 1 more day. You can resume it just as you normally would tomorrow. 1. If tolerated, consume a soft, low fiber diet for 1-2 days. [address] Do not drive, drink alcohol, operate machinery, make critical decisions, or do activities that require coordination or balance for 24 hours. 3. You may experience a sore throat for 24 to 48 hours. You may use throat lozenges or gargle with warm salt water to relieve the discomfort. 4. Because air was put into your stomach during the procedure, you may experience some belching. 5. Go directly to the emergency room if you notice any of the following: Develop chills (warm to touch), or if you have a thermometer and your temperature is above 101 Difficulty breathing or difficultly swallowing Persistent vomiting Severe abdominal pain, other than gas cramps Severe chest pain Black, tarry stools Any bleeding ? exceeding one tablespoon 6. Call your physician if the site where your intravenous was started becomes red, swollen, painful, and warm to touch. 7. Your physician has reviewed your pre-procedure medications. Please continue to take those medications as previously ordered. You will be given specific information/education regarding any changes to your medications before leaving. Stand Alone Forms: Anesthesia Discharge InstAyan Panchal (DSU) Activity:: Activity as Tolerated Discharge Orders Discharge Orders: Discharge Order (Routine); Ordered 12/17/24 Ordered By: Woody Damon DS: Diagnosis Discharge Diagnosis (1) Dysphagia: Status: Acute Asessment and Plan: Follow-up on biopsy results and refer down to [facility]
--- NOTE | 2024-12-17 06:01 | ENDO_ITS ---
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) PROCEDURE: EGD with biopsies SURGEON: Woody Damon ANESTHESIA TYPE: General:No Airway ESTIMATED BLOOD LOSS: 5 PATHOLOGY: other (Nondirected biopsies of the gastrojejunal anastomosis) COMPLICATIONS: None DISPOSITION: same day INDICATIONS: Winston is an 84 year old man with a history of gastric bypass surgery who resents with new dysphagia PROCEDURE START TIME: 12:23 PROCEDURE END TIME: 12:32 FINDINGS: Narrowed gastrojejunal anastomosis PROCEDURE DESCRIPTION: After the initiation of anesthesia, and with the assistance of a bite block, I advanced a standard gastroscope through the mouth past the hypopharynx and into the esophagus.? Under the direct vision of the scope, I advanced down the esophagus towards the stomach.? The upper, mid, and lower esophagus were normal- appearing and widely patent. I saw no evidence of any strictures, or any other obstructions of the esophagus. There is mild irregularity of the Z-line around 38 cm from the incisors. There is some retained food product in the gastric pouch, which is mildly erythematous and friable towards the gastrojejunal anastomosis. There is sharp angulation of the anastomosis, and although I can irrigate a little bit across it, and see just part of the lumen, I am not able to navigate the camera safely across it. Given the confirmation of it, I do not feel comfortable cannulating it with a guidewire in an effort to dilate it. I did do some nondirected cold forceps biopsies at the area of the anastomosis, although I do not see any discrete pathology that would suggest malignancy here. There was minimal bleeding from the biopsy sites. I was able to retrieve some of the retained food product from the gastric pouch. In light of the complexity of his anatomy, I felt the safest thing to do at this point was to terminate the procedure, and refer him down to [facility] to meet with an advanced endoscopist, or bariatric surgeon to discuss other options. The gastric pouch was emptied, and the camera was brought out along the length of the esophagus 1 last time. The patient was then allowed awaken from the anesthetic and transferred back to the day surgery unit.
[2024-12-18 11:12] VITALS: BP 137/70; PULSE 32; RESP 20; TEMP 36.6; O2SAT 98
[2024-12-18] MEDS: Lactated Ringers 1,000 ML 80 ML IV (11:47)
--- NOTE | 2024-12-18 11:58 | W.ANESPRE ---
General Info Date of Service Date Performed: 12/18/24 Height: 5 ft 9 in Weight: 111.9 kg Body Mass Index (BMI): 36.4 Surgical Procedure: Operation Date: 12/18/24 12:05 Proposed Procedure Side Surgeon p Gastroscopy Woody Damon MD Meds Allergies and Home Medications Allergies Allergy/AdvReac Type Severity Reaction Status Date / Time Penicillins Allergy Intermediate swelling Verified 12/18/24 11:09 Home Medication ?Medication ?Instructions ?Recorded Eliquis 5 mg tablet (apixaban) 5 mg PO BID 01/21/18 ferrous sulfate 325 mg (65 mg 325 mg PO DAILY 06/22/22 iron) tablet omeprazole 20 mg capsule,delayed 20 mg PO DAILY 06/22/22 release losartan 25 mg tablet 25 mg PO DAILY 08/08/24 acetaminophen 500 mg tablet 500 mg PO ONCE 12/18/24 (Tylenol Extra Strength) Current Visit Medications: Current Medications Generic Name Dose Route Start Last Admin Trade Name Freq PRN Reason Stop Dose Admin Ringer's Solution 1,000 mls @ 80 mls/hr 12/18/24 06:00 12/18/24 11:47 IV 12/18/24 23:59 80 mls/hr INFUSION CHELSEA Administration IV Miscellaneous Supplies 1 each 12/18/24 06:00 Iv Access IV 12/18/24 23:59 DIRECTED CHELSEA Ondansetron HCl 4 mg 12/17/24 06:02 Ondansetron 4 Mg/2 Ml Vial IVP 01/16/25 06:01 Q4H PRN PRN Nausea / Vomiting Sodium Chloride 0 ml 12/18/24 06:00 Normal Saline Flush 10 Ml Syr IV 12/18/24 23:59 PRN PRN Sodium Chloride 0 ml 12/18/24 06:00 Normal Saline 10 Ml Vial IJ 12/18/24 23:59 DIRECTED PRN Sterile Water 0 ml 12/18/24 06:00 Water,Injection,Sterile 10 Ml Vial IJ 12/18/24 23:59 DIRECTED PRN PFSH Active Problems Active Problems: Problem Status Onset Code Dysphagia Acute R13.10 Degenerative arthritis of left knee Acute M17.12 Paroxysmal atrial fibrillation Acute I48.0 Ventricular arrhythmia Acute I49.9 Surgical History Surgical History stomach stapling Colonoscopy - MAC (03/04/18) Extraction of cataract Tobacco Smoking/Tobacco Use Status: Never Alcohol Alcohol Intake: never Substance Use Substance use: Never Substance use type: does not use Vital Signs and Lab Results Vital Signs Most Recent Vital Signs in EMR: Most Recent Vital Signs Temp Pulse Resp BP Pulse Ox 36.6 C 32 L 20 137/70 98 12/18/24 11:12 12/18/24 11:12 12/18/24 11:12 12/18/24 11:12 12/18/24 11:12 Lab Results Blood Type / Crossmatch: No Data to Display Complete Blood Count: No Data to Display Complete Metabolic Panel: No Data to Display Liver Function Panel: No Data to Display Coagulation Panel: No Data to Display Cardiac Panel: No Data to Display Arterial Blood Gas: No Data to Display Venous Blood Gas: No Data to Display Pancreas Panel: No Data to Display Thyroid Panel: No Data to Display Infectious Disease: No Data to Display Blood Cultures: No Data to Display Toxicology Panel: No Data to Display Anesthesia Assessment and Plan Anesthesia History Personal History: No History of Anesthesia Complications Family History: No Family History of Anesthesia Complications Exercise Tolerance Exercise Tolerance: Metabolic Equivalents>4 Pertinent Negatives Pertinent Negatives: No Symptoms of GERD Cardiac & Pulmonary Exam Cardiac Exam: Normal S1/S2 Heart Sounds Pulmonary Exam: Clear Bilateral Breath Sounds Implantable Cardiac Device Does patient have a Pacemaker or an ICD?: No Airway Exam Known Difficult Airway: No Mallampati Class: 2 Mouth Opening: Normal (> 3cm) Thyromental Distance: Greater than 3 cm Neck Range of Motion: Full ROM Neck Circumference: Normal Teeth Condition: Removable Dentures/Plates Upper ASA Classification ASA Score: ASA 3 Emergency Case?: No NPO Status NPO Status: NPO Clears >2 hours, Solids >8 hours Anesthesia Plan Resuscitation Status: Full Code Anesthesia Technique: General Anesthesia Airway Planned: Natural Airway Monitors Used: Standard Monitors
[2024-12-18 12:00] VITALS: BMI 36.4
--- NOTE | 2024-12-18 12:25 | STOM_PTH ---
PATIENT: Melissa Crespo LOC: [facility] U#:[id number] AGE/SX: 84/M ROOM: RE12/18/[address]: Woody Damon MD : 1940 BED: DIS: 12/18/2024 SPEC #: [id number] RECD: 12/18/24 13:17 STATUS: JACKIE RE #: [id number] PIPER: 12/18/24 12:[address]: Woody Damon DEPT: Surgical Specimen RECD BY: Layla Jones ENTERED: 12/18/24 13:19 SP TYPE: STOMACH OTHR DR: Amrit Mathis Tissues: 1 - STOMACH BIOPSY Procedures: SPECIAL STAIN 2 GROSS AND MICRO LEVEL 4 IMMUNOPEROXIDASE STAIN Comments: [id number]
[2024-12-18 12:45] VITALS: BP 129/68; PULSE 80; RESP 16; TEMP 36.2; O2SAT 94
--- NOTE | 2024-12-18 12:56 | W.ANESPOSTOP ---
Postoperative Evaluation Date, Time and Location Date Performed: 12/18/24 Time Performed: 12:56 Patient Location: Day Surgery Unit Vital Signs Most Recent Imported Vital Signs: Most Recent Vital Signs Temp Pulse Resp BP Pulse Ox 36.2 C L 80 16 129/68 94 12/18/24 12:45 12/18/24 12:45 12/18/24 12:45 12/18/24 12:45 12/18/24 12:45 Pain Score Most Recent Pain Score: Most Recent Pain Score Pain Level 0 12/18/24 12:45 Assessment Mental Status: Awake (Alert & Oriented to Patient Baseline) Airway and Respiratory Function: Patent airway with normal (patient baseline) respiratory exam Cardiovascular Function: Hemodynamically Stable Hydration Status: Adequately Hydrated Nausea & Vomiting: No Nausea or Vomiting Pain: Pt. Denies Any Pain Peripheral Nerve Block: Patient did not receive a nerve block Postoperative Comments:: Diagnosed with gastric outlet obstruction. Food still present from his dinner on 12/17. MAbdulkadir Flores CRNA
[2024-12-18 13:20] VITALS: BP 147/72; PULSE 80; RESP 17; TEMP 36.3; O2SAT 96
== END 2024-12-18 13:30 | disposition home or self-care (01) ==
LOC: SUR 09:59
PROVIDERS: PCP Family Medicine; Visit Provider Surgery
PROC: 0DJ68ZZ Inspection of Stomach, Via Natural or Artificial Opening Endoscopic (ICD-10-PCS; CPT 43235; principal; 2024-12-18 12:00)
DX: R13.10 Dysphagia, unspecified (principal); I48.0 Paroxysmal atrial fibrillation; K31.9 Disease of stomach and duodenum, unspecified
CPT/HCPCS: 43239; 88305; 88313; 88361; J2003; J2704

== ENCOUNTER 2024-12-26 02:26 | Outpatient (CLI) | payer MEDICARE, SELFPAY ==
[2024-12-26] MEDS: Breeza Beverage 473 ML BTL PO (11:52)
[2024-12-26] MEDS: Omnipaque 350 MG/ML 50 ML BTL PO (11:53)
[2024-12-26 12:13] LABS: Estimated GFR 74.68 (mL/min/1.73m2)
[2024-12-26] MEDS: Omnipaque 350 MG/ML 100 ML BTL IJ (13:31)
[2024-12-26] MEDS: Normal Saline - Diluent 50 ML VIAL IJ (13:31)
--- NOTE | 2024-12-26 13:45 | DI.CT_ITS ---
Exam(s) CT ABDOMEN PELVIS W EXAM: CT ABDOMEN PELVIS W CLINICAL HISTORY: stricture/obstruciton gastrojejunal junction.gastric outlet obstruction, TECHNIQUE: Imaging Protocol: Axial computed tomography images with coronal and sagittal reformatted images were created and reviewed. CONTRAST MATERIAL: Intravenous: Omnipaque 350 Contrast volume:100 mL Oral: Yes COMPARISON: CR PELVIS AP from 06/04/2016 FINDINGS: The examination is limited due to patient motion artifact. ABDOMEN: Lung Bases: There is mild concentric thickening of the distal esophagus. Liver: Normal density. No measurable mass. Portal, Superior Mesenteric, and Splenic Veins: Unremarkable. Gallbladder and Biliary Tract: Cholelithiasis. No biliary ductal dilatation. Pancreas: Fatty atrophy of the pancreas. No evidence of a pancreatic mass or peripancreatic fluid co llection. Spleen: Normal. Adrenals: No masses seen. Kidneys: Normal size, contour and axis. No radiodense stones or obstructive uropathy. No masses seen. Abdominal Aorta: Abdominal portion non-dilated. Atherosclerotic calcification is present. Bowel: There is diverticulosis of the colon without evidence of acute diverticulitis. There are post surgical changes seen in the proximal stomach. There is narrowing seen in the gastric antrum which m ay be due to peristalsis. Contrast passes into the small bowel without evidence of obstruction. The re is no evidence of bowel obstruction or bowel wall thickening. Appendix is unremarkable. Peritoneal Cavity: No ascites, collection or mesenteric inflammatory response. No free air. Lymph Nodes: Within normal limits. Bones: Within normal limits for the patient's age. There is an intramedullary amara seen in the left f emur. Soft Tissues: Unremarkable. PELVIS: Bladder: Symmetric distention, no gross wall thickening. Reproductive Organs: Unremarkable as visualized. Lymph Nodes: Within normal limits. Bones: Within normal limits for the patient's age. IMPRESSION: 1. Examination limited by patient motion artifact. 2. Postsurgical changes seen in the proximal stomach. 3. There is narrowing seen at the gastric antrum but this may be due to peristalsis. There is no bow el wall thickening or obstruction. The oral contrast passes from the stomach into the small bowel. 4. Colonic diverticulosis without evidence of acute diverticulitis. 5. Mild thickening of the distal visualized esophagus. This may be due to underdistention but esopha gitis cannot be excluded. Please correlate clinically. 6. Cholelithiasis. No biliary ductal dilatation. RADIATION DOSE DELIVERED: 1,416.02mGy.cm Total DLP DATA REPOSITORY: All CT scans at this facility are submitted to the National Radiology Data Registry (NRDR) Dose Index Registry (DIR) with the [employer] ([employer]). RADIATION OPTIMIZATION: All CT scans at this facility use at least one of these dose optimization te chniques: automated exposure control; mA and/or kV adjustment per patient size (includes targeted exa ms where dose is matched to clinical indication); or iterative reconstruction.
== END 2024-12-26 02:46 ==
LOC: DI 02:27
PROVIDERS: PCP Family Medicine; Visit Provider Surgery
DX: K31.1 Adult hypertrophic pyloric stenosis (principal); K80.80 Other cholelithiasis without obstruction; K57.30 Diverticulosis of large intestine without perforation or abscess without bleeding; Z98.890 Other specified postprocedural states
CPT/HCPCS: 74177; 82565; J3490; Q9967

== ENCOUNTER 2025-05-03 15:30 | Outpatient (REF) | payer MEDICARE, SELFPAY ==
[2025-05-03 15:45] LABS: HCT 44.4 % (40.0-50.0); HGB 14.5 g/dL (13.5-17.5); MCH 30.5 pg (27.0-33.0); MCHC 32.7 % (32.0-36.0); MCV 93 fL (80-95); Platelet Count 375 10^3/uL (130-400); RBC 4.76 10^6/uL (4.36-5.78); RDW 12.8 % (11.8-14.1); RDW-SD 44.1 fL; WBC 6.38 10^3/uL (4.4-10.8)
[2025-05-03 16:14] LABS: Iron 94 ug/dL (65-175); Total Iron Binding Capacity 301 ug/dL (250-450); Transferrin Sat 31 % (20-55)
[2025-05-03 16:40] LABS: Anion Gap 5.9 mmol/L (3-11); BUN 22 mg/dL (7-18); CO2 29.1 mmol/L (21.0-32.0); Calcium 9.2 mg/dL (8.5-10.1); Chloride 105 mmol/L (98-107); Estimated GFR 74.21 (mL/min/1.73m2); Ferritin 94 ng/mL (26-388); Glucose 97 mg/dL (74-106); Potassium 5.2 mmol/L (3.5-5.1); Sodium 140 mmol/L (136-145); Vitamin B12 463 pg/mL (193-986); Vitamin D 25 Total 35 ng/mL (30-100)
[2025-05-03 16:41] LABS: Folate > 20.0 ng/mL (8.6-20.0)
== END 2025-05-03 15:31 | disposition home or self-care (01) ==
LOC: NCHCN 15:30
PROVIDERS: PCP Family Medicine; Visit Provider Family Medicine
DX: E61.1 Iron deficiency (principal); E55.9 Vitamin D deficiency, unspecified
CPT/HCPCS: 80048; 82306; 85027; 82607; 82728; 82746; 83540; 83550